=== PATIENT | female | born 2000 | race Caucasian/White ===

== ENCOUNTER 2023-12-01 07:57 | Outpatient (CLI) | payer BC, SELFPAY | END 2023-12-01 07:58 | disposition home or self-care (01) | LOC: ANHAUDASC 07:59 | PROVIDERS: Visit Provider Otolaryngology | DX: H81.02 Meniere's disease, left ear (principal); H90.6 Mixed conductive and sensorineural hearing loss, bilateral | CPT/HCPCS: 92557; 92567 ==